=== PATIENT | male | born 1965 | race Caucasian/White ===

== ENCOUNTER → 2023-12-06 08:06 | Outpatient (REF) | payer BC, SELFPAY | LOC: REG 08:06 | PROVIDERS: ATTENDING PHYSICIAN Nurse Practitioner | DX: R05.1 Acute cough (principal) | CPT/HCPCS: 71046 ==

== ENCOUNTER 2024-08-10 06:31 | Day surgery (SDC) | payer BC, SELFPAY ==
[2024-08-08 09:56] VITALS: BMI 26.3
[2024-08-10] VITALS (9 sets, daily range): BP systolic 113–124; BP diastolic 58–65; BMI 26.3
[2024-08-10] MEDS: TYLENOL 1000 MG PO (07:36)
[2024-08-10] MEDS: CELEBREX 200 MG PO (07:36)
== END 2024-08-10 12:47 | disposition home or self-care (01) ==
LOC: SDS 06:31
PROVIDERS: ATTENDING PHYSICIAN Orthopaedic Surgery; FAMILY PHYSICIAN Nurse Practitioner
DX: M75.122 Complete rotator cuff tear or rupture of left shoulder, not specified as traumatic (principal); M19.012 Primary osteoarthritis, left shoulder
CPT/HCPCS: 29827; 29824; 20680; 36415; 93005